=== PATIENT | female | born 1955 | race Caucasian/White ===

== ENCOUNTER 2024-10-22 10:18 | Outpatient (REF) | payer MEDICARE, SELFPAY | END 2024-10-22 10:19 | disposition home or self-care (01) | LOC: HO.SH 10:18 | PROVIDERS: Visit Provider Internal Medicine | DX: Z01.118 Encounter for examination of ears and hearing with other abnormal findings (principal); H90.3 Sensorineural hearing loss, bilateral | CPT/HCPCS: 92557 ==

== ENCOUNTER 2024-10-28 14:52 | Outpatient (REF) | payer SELFPAY ==
--- NOTE | 2024-10-28 15:47 | MHC.AU.MED ---
Medical Clearance for Hearing Instrumentation Date: 10/28/24 Patient Name: Heidy Cruz Date of : 1955 Primary Care Provider: Referring Provider: Michael Duenas MD We have seen your patient on 10/28/24 and have determined that they are a candidate for amplification (See accompanying report). Specifically, they would benefit from: Hearing aid use in both ears There is a statute that addresses Medical Evaluation Requirements prior to fitting a patient with a hearing aid. According to [place] statute 265 CMR:6.03(1), (a) General. Except as provided in 265 CMR 6.03(1)(b), a maintenance parts technician shall not sell a hearing aid unless the prospective user has presented to the maintenance parts technician a written statement signed by a licensed physician that states that the patient's hearing loss has been medically evaluated and the patient may be considered a candidate for a hearing aid. The medical evaluation must have taken place within the preceding six months. Please note: Due to the [place] Statute referenced above, we cannot accept a signature other than that of a licensed physician. DISSOLVER OPERATOR and [place] signatures cannot be accepted. I am in agreement with the above recommendation. There is no medical contraindication for hearing instrumentation. Physician Signature Date Physician Name (Printed)
== END 2024-10-28 14:53 | disposition home or self-care (01) ==
LOC: HO.HAP 14:52
PROVIDERS: Visit Provider Internal Medicine
DX: Z46.1 Encounter for fitting and adjustment of hearing aid (principal)
CPT/HCPCS: 92591

== ENCOUNTER 2024-12-11 13:54 | Outpatient (REF) | payer SELFPAY | END 2024-12-11 13:55 | disposition home or self-care (01) | LOC: HO.HAP 13:54 | PROVIDERS: Visit Provider Internal Medicine | DX: Z46.1 Encounter for fitting and adjustment of hearing aid (principal); H90.3 Sensorineural hearing loss, bilateral | CPT/HCPCS: 92700; V5261; V5299 ==

== ENCOUNTER 2024-12-21 12:49 | Outpatient (REF) | payer SELFPAY | END 2024-12-21 12:50 | disposition home or self-care (01) | LOC: HO.HAP 12:49 | PROVIDERS: Visit Provider Internal Medicine | DX: Z13.89 Encounter for screening for other disorder (principal) ==

== ENCOUNTER 2024-12-29 08:01 | Outpatient (REF) | payer SELFPAY | END 2024-12-29 08:02 | disposition home or self-care (01) | LOC: HO.HAP 08:01 | PROVIDERS: Visit Provider Internal Medicine | DX: Z13.89 Encounter for screening for other disorder (principal) ==